=== PATIENT | female | born 1945 | race Caucasian/White ===

== ENCOUNTER 2016-08-19 12:02 | Emergency (ER) | payer MEDICARE, BC ==
[~2016-08-19] VITALS: Ht 157.5 cm; Wt 83.9 kg
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
--- NOTE | 2016-08-19 13:58 | NUR ---
ATTEMPTING TO REACH DR STEWART FOR CONSULT NO RESPONSE FROM HIS LINE
--- NOTE | 2016-08-19 14:07 | NUR ---
PA AT BEDSIDE
[2016-08-19 14:33] LABS: BASOPHILS % (AUTO) 0.1 % (0.0-2.0); EOSINOPHILS # (AUTO) 0.1 /CMM (0.0-0.7); EOSINOPHILS % (AUTO) 0.5 % (0.0-6.0); HEMATOCRIT 36 % (33-45); HEMOGLOBIN 11.6 g/dL (11.5-14.8); LYMPHOCYTES # (AUTO) 2.3 /CMM (0.8-4.8); LYMPHOCYTES % (AUTO) 10.8 % (20.0-44.0); MEAN CORPUSCULAR HEMOGLOBIN 24 PG (26.0-33.0); MEAN CORPUSCULAR HGB CONC 33 g/dl (31.0-36.0); MEAN CORPUSCULAR VOLUME 74 fL (82-100); MONOCYTES # (AUTO) 1.2 /CMM (0.1-1.30); MONOCYTES % (AUTO) 5.9 % (2.0-12.0); NEUTROPHILS # (AUTO) 17.3 /CMM (1.8-8.9); NEUTROPHILS % (AUTO) 82.7 % (43.0-81.0); PLATELET COUNT (AUTO) 339 /CMM (150-450); RDW COEFFICIENT OF VARIATION 15.8 (11.5-15.0); RED BLOOD CELL COUNT(AUTO) 4.83 MIL/uL (4.0-5.2); WHITE BLOOD COUNT (AUTO) 20.9 K/uL (4.3-11.0)
--- NOTE | 2016-08-19 14:43 | NUR ---
BETTY STEWART PAGED.
[2016-08-19 14:44] LABS: CALCIUM, SERUM 9.8 mg/dL (8.5-10.1); CREATININE 1.1 mg/dL (0.6-1.3); POTASSIUM 4.2 mmol/L (3.5-5.1)
[2016-08-19 14:48] LABS: INR 0.98 (0.87-1.13); PROTHROMBIN TIME 10.2 SECS (9.5-12.7)
[2016-08-19] MEDS ORDERED: GABA-532 PO (15:06)
[2016-08-19] MEDS ORDERED: HYDR-4076 PO (15:06)
[2016-08-19] MEDS ORDERED: FURO-145 PO (15:06)
[2016-08-19] MEDS ORDERED: LISI-603 PO (15:06)
[2016-08-19] MEDS ORDERED: LEVO125T PO (15:06)
[2016-08-19] MEDS ORDERED: INSU100I4 SQ (15:06)
[2016-08-19] MEDS ORDERED: AMLO5TAB4 PO (15:06)
[2016-08-19] MEDS ORDERED: LIRA0.6P SQ (15:06)
[2016-08-19] MEDS ORDERED: PYRI60TA2 PO (15:06)
[2016-08-19] MEDS ORDERED: ATOR20TA PO (15:06)
[2016-08-19] MEDS ORDERED: INSU3INS6 SQ (15:06)
[2016-08-19] MEDS ORDERED: ASPI81TA2 PO (15:06)
--- NOTE | 2016-08-19 15:48 | NUR ---
BLOOD SUGAR CHECKED PER PT REQUEST PRIOR TO EATING. PROVIDED WITH DIABETIC TRAY.
--- NOTE | 2016-08-19 16:40 | NUR ---
IRINA MILLER CALLED AT [phone] REGARDING PT'S PLAN TO GO BY PRIVATE CAR, SHE SAID THAT THEY WILL CALL US BACK TO MAKE SURE THAT PATIENT WILL BE ABLE TO GO DIRECT ADMIT OR NEED TO CHECK IN WITH ER.
--- NOTE | 2016-08-19 16:49 | NUR ---
PT GOING BY PRIVATE VEHICLE PER PREFERENCE CAN GO STRAIGHT UP TO ROOM 412 AT [facility] IS ACCEPTING
--- NOTE | 2016-08-19 17:01 | NUR ---
REPORT CALLED TO LUIS JEAN RN
--- NOTE | 2016-08-19 17:36 | NUR ---
Patient discharged in stable condition. Written and verbal after care instructions given. Patient verbalizes understanding of instruction. PATIENT AND FAMILY VERBALIZE UNDERSTANDING TO GO STRAIGHT TO [facility]. IMAGES AND REPORTS WITH PT.
[2016-08-19 17:38] VITALS: BP 137/85
[2016-08-19 17:52] LABS: APPEARANCE,URINE Clear (CLEAR); BILIRUBIN,URINE Negative (NEGATIVE); BLOOD, URINE Negative Ery/uL (NEGATIVE); COLOR,URINE Yellow (YELLOW); KETONES,URINE Negative (NEGATIVE); LEUKOCYTE ESTERASE ,URINE Negative (NEGATIVE); NITRITE, URINE Negative (NEGATIVE); PH,URINE 5.5 (5.0-8.0); PROTEIN,URINE Negative (NEGATIVE); UGLUCOSE Negative (NEGATIVE); UROBILINOGEN,URINE 0.2 EU/dL (0.2)
== END 2016-08-19 17:39 | disposition home or self-care (01) ==
LOC: ER 12:04
DX: S82.51XA Displaced fracture of medial malleolus of right tibia, initial encounter for closed fracture (principal); S89.301A Unspecified physeal fracture of lower end of right fibula, initial encounter for closed fracture; I10 Essential (primary) hypertension; K21.9 Gastro-esophageal reflux disease without esophagitis; E11.9 Type 2 diabetes mellitus without complications; F32.9 Major depressive disorder, single episode, unspecified; R79.1 Abnormal coagulation profile; Z88.0 Allergy status to penicillin; Z88.1 Allergy status to other antibiotic agents; Z88.2 Allergy status to sulfonamides; Z88.8 Allergy status to other drugs, medicaments and biological substances; Z79.82 Long term (current) use of aspirin; Z79.4 Long term (current) use of insulin; W18.40XA Slipping, tripping and stumbling without falling, unspecified, initial encounter; Y93.89 Activity, other specified; Y92.89 Other specified places as the place of occurrence of the external cause; Y99.8 Other external cause status
CPT/HCPCS: 29515; 36415; 71010; 73610; 80048; 81001; 82962; 85025; 85730; 87081; 93005; 99285; A4606 ×2; 81000-TC; Z7610

== ENCOUNTER 2018-09-24 08:14 | Outpatient (CLI) | payer MEDICARE, BC ==
[~2018-09-24 08:14] MED LIST: AMLO5TAB4 PO; ASPI-1169 PO; ATOR20TA PO; FURO-145 PO; GABA-532 PO; HYDR-4076 PO; INSU100I4 SQ; INSU3INS6 SQ; LEVO125T PO; LIRA0.6P SQ; LISI-603 PO; PYRI60TA2 PO
[2018-09-24] MEDS ORDERED: REGADENOSON 0.4 MG/5 ML DISP.SYRIN IVP ONE (10:00)
== END 2018-09-24 23:59 | disposition home or self-care (01) ==
LOC: NM 08:14
PROVIDERS: ATTEND Internal Medicine Interventional Cardiology
DX: I25.10 Atherosclerotic heart disease of native coronary artery without angina pectoris (principal); I10 Essential (primary) hypertension; E11.9 Type 2 diabetes mellitus without complications
CPT/HCPCS: 78452; A9502; J2785